=== PATIENT | female | born 1960 | race African-American/Black ===

== ENCOUNTER 2018-10-08 12:16 | Emergency (ER) | payer OTHER ==
[2018-10-08 12:47] LABS: Absolute Lymphocytes (CBC) 1.2 K/uL (0.7-4.9); Basophils % 0.9 % (0-1.3); Eosinophils % 0.9 % (0-4.4); Lymphocytes % 36.6 % (15.3-44.8); MPV 13.4 fL (7.6-11.3); Monocytes % 13.2 % (3.3-12.3); RBC Red Blood Cell Count 4.53 M/uL (3.86-4.86)
[2018-10-08] MEDS ORDERED: ONDANSETRON 4 MG/2 ML VIAL ONE ×2 (12:48→13:02)
[2018-10-08] MEDS ORDERED: NA CHLORIDE 0.9% 1,000 ML ONE (12:48)
[2018-10-08] MEDS ORDERED: MORPHINE 4 MG/ML SYR ONE (12:48)
[2018-10-08 13:06] LABS: ALT/SGPT 18 U/L (12-78); AST/SGOT 11 U/L (15-37); Albumin 3.5 g/dL (3.4-5.0); Alkaline Phosphatase 66 U/L (45-117); BUN Blood Urea Nitrogen 20 mg/dL (7-18); Bicarbonate 26 mmol/L (21-32); Bilirubin Direct < 0.1 mg/dL (0-0.2); Bilirubin Total 0.3 mg/dL (0.2-1.0); Glucose Level 83 mg/dL (74-106); Lipase 66 U/L (73-393); Potassium 3.5 mmol/L (3.5-5.1); Protein, Total 7.1 g/dL (6.4-8.2); Sodium Level 141 mmol/L (136-145)
[2018-10-08 13:43] LABS: Urine Blood NEGATIVE (NEG); Urine Glucose NEGATIVE (NEG); Urine Protein NEGATIVE (NEG); Urine Specific Gravity 1.015 (1.005-1.030); Urine pH 5.5 (5.0-7.0)
--- NOTE | 2018-10-08 13:50 | RAD REPORT ---
EXAM DESCRIPTION: CTAbdomen Pelvis W Contrast - 10/08/2018 1:40 pm CLINICAL HISTORY: Abdominal pain. Abd pain;Nausea / vomiting COMPARISON: <Comparisons> TECHNIQUE: Biphasic CT imaging of the abdomen and pelvis was performed with 100 ml non-ionic IV cont rast. All CT scans are performed using dose optimization technique as appropriate and may include automated exposure control or mA/KV adjustment according to patient size. FINDINGS: The lung bases are clear. The liver, spleen, pancreas, adrenal glands and kidneys are within normal limits. 13 mm right renal c ysts, benign in appearance. No bowel obstruction, free air, free fluid or abscess. Scattered colonic diverticulosis. The appendix is normal. No evidence of significant lymphadenopathy. No suspicious bony findings. IMPRESSION: No acute intra-abdominal or pelvic finding.
[2018-10-08 13:54] LABS: Urine Bacteria <20 /HPF (<20); Urine Culture Reflex Order NOT NEEDED; Urine RBC <5 /HPF (NONE SEEN)
[2018-10-08] MEDS ORDERED: PROMETHAZINE 25 MG/ML VIAL ONE (14:11)
--- NOTE | 2018-10-08 14:33 | EDPHYS ---
Physician Documentation [facility] Name: Alda Holliday Age: 58 yrs Sex: Female : 1960 Arrival Date: 10/08/2018 Time: 12:23 Bed 13 Private MD: ED Physician Elder Diaz HPI: 10/08 12:28 This 58 yrs old Black Female presents to ER via EMS with complaints of pm1 Nausea/Vomiting/Diarrhea. 12:28 The patient presents to the emergency department with nausea, with "dry heaves", pm1 diarrhea, abdominal pain, of the abdomen diffusely, described as crampy, and does not radiate. Onset: The symptoms/episode began/occurred yesterday. Possible causes: sick contacts, by a friend, same complaints of vomiting and diarrhea. The symptoms are aggravated by nothing. The symptoms are alleviated by nothing. Associated signs and symptoms: Pertinent positives: abdominal pain, diarrhea, nausea, vomiting, Pertinent negatives: constipation, dysuria, fever. Severity of symptoms: in the emergency department the symptoms are worse. The patient has not experienced similar symptoms in the past. The patient has not recently seen a physician. Historical: - Allergies: 12:31 PENICILLINS; iw - PMHx: 12:31 vertigo; iw - PSHx: 12:31 Knee surgery; iw - Immunization history:: Adult Immunizations up to date. - Social history:: Smoking status: Patient/guardian denies using tobacco. - Ebola Screening: : Patient negative for fever greater than or equal to 101.5 degrees Fahrenheit, and additional compatible Ebola Virus Disease symptoms Patient denies exposure to infectious person Patient denies travel to an Ebola-affected area in the 21 days before illness onset No symptoms or risks identified at this time. ROS: 12:28 Constitutional: Negative for fever, chills, and weight loss, Eyes: Negative for injury, pm1 pain, redness, and discharge, ENT: Negative for injury, pain, and discharge, Neck: Negative for injury, pain, and swelling, Cardiovascular: Negative for chest pain, palpitations, and edema, Respiratory: Negative for shortness of breath, cough, wheezing, and pleuritic chest pain. 12:28 Back: Negative for injury and pain, : Negative for injury, bleeding, discharge, and swelling, MS/Extremity: Negative for injury and deformity, Skin: Negative for injury, rash, and discoloration, Neuro: Negative for headache, weakness, numbness, tingling, and seizure. 12:28 Abdomen/GI: Positive for abdominal pain, nausea, vomiting, and diarrhea, Negative for constipation, rectal pain, rectal bleeding. Exam: 12:28 Constitutional: This is a well developed, well nourished patient who is awake, alert, pm1 and in no acute distress. Head/Face: Normocephalic, atraumatic. Eyes: Pupils equal round and reactive to light, extra-ocular motions intact. Lids and lashes normal. Conjunctiva and sclera are non-icteric and not injected. Cornea within normal limits. Periorbital areas with no swelling, redness, or edema. ENT: Nares patent. No nasal discharge, no septal abnormalities noted. Tympanic membranes are normal and external auditory canals are clear. Oropharynx with no redness, swelling, or masses, exudates, or evidence of obstruction, uvula midline. Mucous membranes moist. Neck: Trachea midline, no thyromegaly or masses palpated, and no cervical lymphadenopathy. Supple, full range of motion without nuchal rigidity, or vertebral point tenderness. No Meningismus. Chest/axilla: Normal chest wall appearance and motion. Nontender with no deformity. No lesions are appreciated. Cardiovascular: Regular rate and rhythm with a normal S1 and S2. No gallops, murmurs, or rubs. Normal PMI, no JVD. No pulse deficits. Respiratory: Lungs have equal breath sounds bilaterally, clear to auscultation and percussion. No rales, rhonchi or wheezes noted. No increased work of breathing, no retractions or nasal flaring. 12:28 Back: No spinal tenderness. No costovertebral tenderness. Full range of motion. Skin: Warm, dry with normal turgor. Normal color with no rashes, no lesions, and no evidence of cellulitis. MS/ Extremity: Pulses equal, no cyanosis. Neurovascular intact. Full, normal range of motion. 12:28 Abdomen/GI: Inspection: abdomen appears normal, Bowel sounds: normal, Palpation: abdomen is soft and non-tender, mass, is not appreciated, rebound tenderness, is not appreciated. 12:28 Neuro: Orientation: is normal, Motor: is normal, moves all fours, Sensation: is normal, no obvious gross deficits. Vital Signs: 12:32 BP 106 / 69; Pulse 93; Resp 16; Temp 98.0; Pulse Ox 98% on R/A; iw 13:22 BP 106 / 69; Pulse 84; Resp 18; Pulse Ox 100% on R/A; hj 14:58 BP 110 / 70; Pulse 75; Resp 18; Pulse Ox 100% on R/A; hj MDM: 12:24 Patient medically screened. pm1 14:00 Data reviewed: vital signs. Data interpreted: Pulse oximetry: on room air is 100 %. pm1 Interpretation: normal. Counseling: I had a detailed discussion with the patient and/or guardian regarding: radiology results. 14:31 Counseling: I had a detailed discussion with the patient and/or guardian regarding: the pm1 historical points, exam findings, and any diagnostic results supporting the discharge/admit diagnosis, lab results, the need for outpatient follow up, to return to the emergency department if symptoms worsen or persist or if there are any questions or concerns that arise at home. 10/08 12:27 Order name: Basic Metabolic Panel; Complete Time: 13:07 pm10/08 12:27 Order name: CBC with Diff; Complete Time: 13:06 pm10/08 12:27 Order name: Creatinine for Radiology; Complete Time: 13:06 pm10/08 12:27 Order name: Hepatic Function; Complete Time: 13:07 pm10/08 12:27 Order name: Lipase; Complete Time: 13:07 pm10/08 12:28 Order name: Urine Microscopic Only; Complete Time: 14:31 pm10/08 12:27 Order name: CT Abd/Pelvis - IV Contrast Only; Complete Time: 13:54 pm10/08 13:35 Order name: CPK; Complete Time: 14:31 10/08 13:37 Order name: Urine Dipstick--Ancillary (enter results) [facility] 10/08 13:37 Order name: Urine --Ancillary (enter results) [facility] 10/08 12:27 Order name: IV Saline Lock; Complete Time: 12:31 pm10/08 12:27 Order name: Labs collected and sent; Complete Time: 12:31 pm10/08 12:28 Order name: Urine Dipstick-Ancillary (obtain specimen); Complete Time: 13:35 pm1 10/08 12:28 Order name: Urine Test (obtain specimen); Complete Time: 13:34 pm1 10/08 14:44 Order name: PO challenge; Complete Time: 14:44 hj Administered Medications: 12:31 Drug: Zofran 4 mg Route: IVP; Site: left antecubital; hj 13:53 Follow up: Response: No adverse reaction; Nausea is decreased hj 12:31 Drug: morphine 4 mg Route: IVP; Site: left antecubital; hj 13:53 Follow up: Response: No adverse reaction; Pain is decreased hj 12:31 Drug: NS 0.9% 1000 ml Route: IV; Rate: 1000 ml; Site: left antecubital; hj 13:45 Follow up: IV Status: Completed infusion; IV Intake: 1000ml hj 12:49 Drug: Zofran 4 mg Route: IVP; Site: left antecubital; hj 13:52 Follow up: Response: No adverse reaction hj 13:52 Drug: Phenergan 12.5 mg Route: IVP; Site: left antecubital; hj 13:58 Follow up: Response: No adverse reaction; Nausea is decreased hj Disposition: 10/08/18 14:32 Discharged to Home. Impression: Nausea and vomiting, Diarrhea, unspecified, Unspecified abdominal pain. - Condition is Stable. - Discharge Instructions: Abdominal Pain, Adult, Diarrhea, Adult, Nausea and Vomiting, Adult, Viral Gastroenteritis, Adult. - Prescriptions for Bentyl 20 mg Oral Tablet - take 1 tablet by ORAL route every 6 hours As needed; 20 tablet. Phenergan 25 mg Rectal Suppository - insert 1 suppository by RECTAL route every 6 hours As needed; 12 suppository. promethazine 25 mg Oral Tablet - take 1 tablet by ORAL route every 6 hours As needed; 20 tablet. Zofran ODT 4 mg Oral tablet,disintegrating - place 1 tablet by TRANSLINGUAL route every 8 hours As needed; 20 tablet. - Medication Reconciliation Form, Thank You Letter, Antibiotic Education, Prescription Opioid Use form. - Follow up: Emergency Department; When: As needed; Reason: Worsening of condition. Follow up: Private Physician; When: 2 - 3 days; Reason: Recheck today's complaints, Continuance of care, Re-evaluation by your physician. - Problem is new. - Symptoms have improved. Addendum: 10/13/2018 02:07 Co-signature as Attending Physician, Elder Diaz MD. m a2 Signatures: Dispatcher [employer] Richelle Napier, RN RN Sin Bustamante RN RN hj Marinas, Patrick, FITTER'S ASSISTANT FITTER'S ASSISTANT pm1 Elder Diaz MD MD ma2 Corrections: (The following items were deleted from the chart) 10/08 15:00 14:32 10/08/2018 14:32 Discharged to Home. Impression: Nausea and vomiting; Diarrhea, hj unspecified; Unspecified abdominal pain. Condition is Stable. Forms are Medication Reconciliation Form, Thank You Letter, Antibiotic Education, Prescription Opioid Use. Follow up: Emergency Department; When: As needed; Reason: Worsening of condition. Follow up: Private Physician; When: 2 - 3 days; Reason: Recheck today's complaints, Continuance of care, Re-evaluation by your physician. Problem is new. Symptoms have improved. pm1
--- NOTE | 2018-10-08 14:33 | ER ---
Nurse's Notes [facility] Name: Alda Holliday Age: 58 yrs Sex: Female : 1960 Arrival Date: 10/08/2018 Time: 12:23 Bed 13 Private MD: Diagnosis: Nausea and vomiting;Diarrhea, unspecified;Unspecified abdominal pain Presentation: 10/08 12:27 Presenting complaint: EMS states: n/v/d since 0600, was in heat for 3 hours today, also iw c/o abd pain and back pain from dry heaving. Transition of care: patient was not received from another setting of care. Onset of symptoms was October 08, 2018. Risk Assessment: Do you want to hurt yourself or someone else? Patient reports no desire to harm self or others. Initial Sepsis Screen: Does the patient meet any 2 criteria? No. Patient's initial sepsis screen is negative. Does the patient have a suspected source of infection? No. Patient's initial sepsis screen is negative. Care prior to arrival: None. 12:27 Method Of Arrival: EMS: [facility] iw 12:27 Acuity: [facility] 3 iw Historical: - Allergies: 12:31 PENICILLINS; iw - PMHx: 12:31 vertigo; iw - PSHx: 12:31 Knee surgery; iw - Immunization history:: Adult Immunizations up to date. - Social history:: Smoking status: Patient/guardian denies using tobacco. - Ebola Screening: : Patient negative for fever greater than or equal to 101.5 degrees Fahrenheit, and additional compatible Ebola Virus Disease symptoms Patient denies exposure to infectious person Patient denies travel to an Ebola-affected area in the 21 days before illness onset No symptoms or risks identified at this time. Screenin:31 Abuse screen: Denies threats or abuse. Denies injuries from another. Nutritional hj screening: No deficits noted. Tuberculosis screening: No symptoms or risk factors identified. Fall Risk None identified. Assessment: 12:31 General: Appears in no apparent distress. uncomfortable, Behavior is calm, cooperative. hj Pain: Complains of pain in abdomen. Neuro: Level of Consciousness is awake, alert, obeys commands, Oriented to person, place, time, situation, Appropriate for age. Cardiovascular: Capillary refill < 3 seconds Patient's skin is warm and dry. Respiratory: Airway is patent Respiratory effort is even, unlabored, Respiratory pattern is regular, symmetrical. GI: Abdomen is non-distended, Reports diarrhea, nausea, vomiting. : No signs and/or symptoms were reported regarding the genitourinary system. EENT: No signs and/or symptoms were reported regarding the EENT system. Derm: No signs and/or symptoms reported regarding the dermatologic system. Musculoskeletal: No signs and/or symptoms reported regarding the musculoskeletal system. 14:44 Reassessment: able to tolerate PO challenge;. hj Vital Signs: 12:32 BP 106 / 69; Pulse 93; Resp 16; Temp 98.0; Pulse Ox 98% on R/A; iw 13:22 BP 106 / 69; Pulse 84; Resp 18; Pulse Ox 100% on R/A; hj 14:58 BP 110 / 70; Pulse 75; Resp 18; Pulse Ox 100% on R/A; hj ED Course: 12:23 Patient arrived in ED. hj 12:24 Hermann Blank NP is PHCP. pm1 12:24 Elder Diaz MD is Attending Physician. pm1 12:30 Sin Mullen RN is Primary Nurse. hj 12:31 Triage completed. iw 12:31 Initial lab(s) drawn, by me, sent to lab. Inserted saline lock: 22 gauge in left hj antecubital area, using aseptic technique. Blood collected. 12:31 Arm band placed on right wrist. hj 12:31 Patient has correct armband on for positive identification. Placed in gown. Bed in low hj position. Call light in reach. Side rails up X 1. 12:37 Radiology exam delayed due to lab results not completed at this time. (BUN/Creatinine). mw3 13:[address] via wheelchair. em2 13:40 CT Abd/Pelvis - IV Contrast Only In Process Unspecified. EDMS 13:42 CT completed. Patient tolerated procedure well. Patient moved back from CT. em2 14:57 No provider procedures requiring assistance completed. IV discontinued, intact, hj bleeding controlled, No redness/swelling at site. Pressure dressing applied. Administered Medications: 12:31 Drug: Zofran 4 mg Route: IVP; Site: left antecubital; hj 13:53 Follow up: Response: No adverse reaction; Nausea is decreased hj 12:31 Drug: morphine 4 mg Route: IVP; Site: left antecubital; hj 13:53 Follow up: Response: No adverse reaction; Pain is decreased hj 12:31 Drug: NS 0.9% 1000 ml Route: IV; Rate: 1000 ml; Site: left antecubital; hj 13:45 Follow up: IV Status: Completed infusion; IV Intake: 1000ml hj 12:49 Drug: Zofran 4 mg Route: IVP; Site: left antecubital; hj 13:52 Follow up: Response: No adverse reaction hj 13:52 Drug: Phenergan 12.5 mg Route: IVP; Site: left antecubital; hj 13:58 Follow up: Response: No adverse reaction; Nausea is decreased hj Intake: 13:45 IV: 1000ml; Total: 1000ml. Outcome: 14:32 Discharge ordered by . pm1 14:58 Discharged to home ambulatory, with family. hj 14:58 Condition: stable 14:58 Discharge instructions given to patient, family, Instructed on discharge instructions, follow up and referral plans. medication usage, Demonstrated understanding of instructions, follow-up care, medications, Prescriptions given X 4. 15:00 Patient left the ED. Signatures: Dispatcher [employer] EDRichelle Cloud RN RN iw Montes, Enrique em2 Sin Mullen RN RN hj Marinas, Patrick, NP CERAMIC CAPACITOR PROCESSOR pm1 Jaqueline Stephens mw3
[2018-10-08 15:08] VITALS: TEMP 98
[2018-10-08 15:09] VITALS: O2SAT 100
[2018-10-08 15:11] VITALS: BP 110/70
== END 2018-10-08 15:00 | disposition home or self-care (01) ==
LOC: ER 12:16
DX: R19.7 Diarrhea, unspecified (principal); R10.9 Unspecified abdominal pain; Z88.0 Allergy status to penicillin
CPT/HCPCS: 36415; 74177; 80048; 80076; 81003; 81015; 81025; 82550; 83690; 85025; 96361; 96374; 96375; 99284; J2405; J2550; J7030; Q9967